=== PATIENT | female | born 1965 | race Asian ===

== ENCOUNTER 2019-09-07 00:15 | Emergency (ER) | payer OTHER ==
[~2019-09-07] VITALS: Ht 177.8 cm; Wt 158.8 kg
[2019-09-07 00:16] VITALS: BP 137/77; TEMP 98.2
[2019-09-07 00:57] LABS: PLATELET COUNT 255 K/uL (152-353)
[2019-09-07 01:06] LABS: POTASSIUM 3.7 mmol/L (3.6-5.2)
[2019-09-07] MEDS ORDERED: ATRIPLA PO (03:33)
[2019-09-07] MEDS ORDERED: BENZTROPINE0.5 MG PO (03:34)
[2019-09-07] MEDS ORDERED: BENZ1TAB43 PO (03:35)
[2019-09-07] MEDS ORDERED: CALCIUM CARB500 MG PO (03:36)
[2019-09-07] MEDS ORDERED: HYDR25TA60 PO (03:37)
[2019-09-07] MEDS ORDERED: MOBIC7.5 M1 PO (03:38)
[2019-09-07] MEDS ORDERED: LOVAZA1 GM PO (03:38)
[2019-09-07] MEDS ORDERED: AMLODIPINE BESYLATE PO (03:39)
[2019-09-07] MEDS ORDERED: [UNRECOGNIZED DRUG - OTHER] IM (03:40)
[2019-09-07] MEDS ORDERED: MINIPRESS2 MG PO (03:41)
[2019-09-07] MEDS ORDERED: TYLENOL325 MG PO (03:43)
[2019-09-07] MEDS ORDERED: ZYPREXA ZYDI15 MG PO (03:43)
[2019-09-12] MEDS ORDERED: ZIPR20CA PO (14:04)
[2019-09-12] MEDS ORDERED: CYAN10009 IM ×2 (14:05)
[2019-09-12] MEDS ORDERED: CHOL100034 PO (14:06)
[2019-09-12] MEDS ORDERED: DIVA500T2 PO ×2 (14:06)
== END 2019-09-07 01:20 | disposition still patient (30) ==
LOC: ED 00:15
PROVIDERS: Emergency Medicine Emergency Medical Services
DX: F20.89 Other schizophrenia (principal); Z11.59 Encounter for screening for other viral diseases; Z04.6 Encounter for general psychiatric examination, requested by authority
CPT/HCPCS: 80053; 81000; 85027; 87635; 93005; 99283; 99285; U00003